=== PATIENT | male | born 2000 | race African-American/Black ===

== ENCOUNTER 2023-03-15 10:27 | Emergency (ER) | payer MEDICAID ==
[~2023-03-15] VITALS: Ht 157.5 cm; Wt 59.0 kg
[2023-03-15 10:35] VITALS: BP 124/70; PULSE 60; RESP 20; TEMP 98; O2SAT 98
[2023-03-15 13:35] VITALS: BP 124/70; PULSE 60; RESP 20; TEMP 98; O2SAT 98
== END 2023-03-15 13:35 | disposition home or self-care (01) ==
LOC: MED 10:27
DX: R41.82 Altered mental status, unspecified (principal); Z79.899 Other long term (current) drug therapy
CPT/HCPCS: 99283